=== PATIENT | female | born 1985 | race Caucasian/White ===

== ENCOUNTER 2019-10-29 07:00 | Day surgery (SDC) | payer OTHER, SELFPAY ==
[2019-10-29] MEDS ORDERED: CLINDAMYCIN 600 MG/50 ML PREMIX BAG ONE (08:09)
[2019-10-29] MEDS ORDERED: CLINDAMYCIN 600 MG/50 ML PREMIX BAG As Ordered ONE (08:09)
[2019-10-29] MEDS ORDERED: LIDOCAINE 2% 100MG/5ML SDV (FOR ANES.) As Ordered ONE (08:28)
[2019-10-29] MEDS ORDERED: fentaNYL 100 MCG/2 ML INJECTION (J3010) As Ordered ONE (08:28)
[2019-10-29] MEDS ORDERED: propofoL 200 MG/20 ML VIAL As Ordered ONE ×3 (08:28→10:01)
[2019-10-29] MEDS ORDERED: MIDAZOLAM INJ 2MG/2ML VIAL (J2250 PER 1MG) As Ordered ONE (08:29)
[2019-10-29] MEDS ORDERED: KETOROLAC 60MG 2ML VIAL As Ordered ONE (10:01)
--- NOTE | 2019-12-31 12:52 | RO ---
DATE OF SURGERY: 10/29/2019 SURGEON: Geovanny Gaines DPM DIRECTOR OF MAINTENANCE: None. PREOPERATIVE DIAGNOSIS: Right foot bunion, hallux valgus. POSTOPERATIVE DIAGNOSIS: Right foot bunion, hallux valgus. PROCEDURE: Right foot bunionectomy with first metatarsal osteotomy and Abad osteotomy. ANESTHESIA: Monitored anesthesia care. PREOPERATIVE INJECTION: 17 cc of a one-to-one mixture of 1% lidocaine plain and 0.5% Marcaine plain. ESTIMATED BLOOD LOSS: Minimal. MATERIALS: Arthrex 3.5 hallux compression screw, Arthrex DynaNite staple, 3-0 Vicryl and 4-0 Vicryl, 4-0 nylon. INJECTABLES: 1 cc Decadron 4 mg/mL. COMPLICATIONS: None. CONDITION: Stable. INDICATIONS: Narcisa Levi is a patient who was brought to [facility] with complaints of painful bunion to her right foot. She presents today for surgical correction. The patient's side and site were identified and marked in the pre-operative holding area. Consent was reviewed and obtained. All risks, complications, and alternatives to the procedure were explained to the patient in detail and all questions were answered. PROCEDURE: The patient was brought to the operating room and placed on the operating room table in the supine position. Monitored anesthesia care was delivered by the anesthesia team. Preoperative injection of 17 cc of a one-to-one mixture of 1% lidocaine plain and 0.5% Marcaine plain were injected in the right foot. The right foot was prepped and draped in normal sterile fashion. The tourniquet was applied to the right ankle and inflated to 225 mmHg. A dorsal medial incision was drawn and carried through with a #15 blade. Dissection was carried until the metatarsophalangeal joint capsule was identified. A T-capsulotomy was performed exposing the metatarsal head. Following this, a lateral release was performed releasing the adductor tendon, lateral capsule, and sesamoidal ligaments. McGlamry elevator was used to release the plantar structures. Following this, the medial eminence of the first metatarsal head was resected with the sagittal saw. Then, an osteotomy was performed in the metatarsal head, transposing it laterally. This was fixated with an Arthrex 3.5 headless screw. The remaining bone ledge was resected with a sagittal saw and smoothed with a rasp. Next, attention was paid to the proximal phalanx. A medial wedge of the cortex was removed effectively placing the toe into a more medial position, correcting the valgus deformity. This was fixated with an Arthrex DynaNite staple. Following this, the site was irrigated with normal saline. A small wedge of the medial capsule was removed and capsular repair was performed with 3-0 Vicryl. Subcutaneous closure was performed with 4-0 Vicryl and the skin closure with 4-0 nylon. Then, 1 cc of Decadron was injected. Sterile dressings were applied. The patient was brought to the PACU with vital signs stable and neurovascular status intact. She will be partial weightbearing. She will follow up in the office in two days. JODIE
== END 2019-10-29 08:35 | disposition home or self-care (01) ==
LOC: M SDC 07:00
PROVIDERS: ATTEND Podiatrist Foot & Ankle Surgery
DX: M21.611 Bunion of right foot (principal); M20.11 Hallux valgus (acquired), right foot; Z79.899 Other long term (current) drug therapy; Z88.0 Allergy status to penicillin; Z88.8 Allergy status to other drugs, medicaments and biological substances
CPT/HCPCS: 28299; 88300; 97161; C1713; J1885; J2250; J3010

== ENCOUNTER → 2020-04-04 | Outpatient (CLI) | payer SELFPAY | LOC: M LABSMTC 09:38 | PROVIDERS: ATTEND Pediatrics | DX: Z20.822 Contact with and (suspected) exposure to COVID-19 (principal) ==